=== PATIENT | female | born 2000 | race Caucasian/White ===

== ENCOUNTER 2018-04-28 06:22 | Day surgery (SDC) | payer OTHER ==
[2018-04-28] MEDS ORDERED: LIDOCAINE 2%/EPI 1:100,000 20 ML VIAL. ONE (06:42)
[2018-04-28] MEDS ORDERED: GELATIN SPONGE SIZE 100. ONE (06:42)
[2018-04-28] MEDS ORDERED: OXYMETAZOLINE 0.05% NASAL SPRAY 30ML BOTTLE. NS ONE (06:42)
[2018-04-28] MEDS ORDERED: NEOMY/BACITR/POLYMYXIN OINT PACKET. TP ONE (06:43)
[2018-04-28] MEDS ORDERED: LIDOCAINE 1%/EPI 1:100,000 20 ML VIAL. ONE (06:43)
[2018-04-28] MEDS ORDERED: MIDAZOLAM HCL/PF 2 MG/2 ML VIAL. IV PRN (06:45)
[2018-04-28] MEDS ORDERED: fentaNYL PF VIAL 100 MCG/2 ML VIAL IV PRN ×2 (06:45)
[2018-04-28] MEDS ORDERED: LIDOCAINE 1% PF 2 ML VIAL. ID PRN (06:45)
[2018-04-28] MEDS ORDERED: IV RINGERS,LACTATED 1000ML 1,000 ML IV SCH (06:45)
[2018-04-28] MEDS ORDERED: MOME17SP NS (06:49)
[2018-04-28 06:50] LABS: U PREG PATIENT NEGATIVE (NEG)
[2018-04-28] MEDS ORDERED: NORG1TAB6 PO (06:50)
[2018-04-28] MEDS ORDERED: BECL10.62 IH (06:50)
[2018-04-28] MEDS ORDERED: VENTOLIN HFA18 GM INH (06:51)
[2018-04-28] MEDS ORDERED: FEXO180T81 PO (06:52)
[2018-04-28] MEDS ORDERED: ONDANSETRON PF 4 MG/2 ML VIAL. ONE (07:09)
[2018-04-28] MEDS ORDERED: PROPOFOL 20 ML IV ONE (07:09)
[2018-04-28] MEDS ORDERED: LIDOCAINE 2% PF Vial for OR 5 ML VIAL. ONE (07:09)
[2018-04-28] MEDS ORDERED: DEXAMETHASONE SOD PHOS 20 MG/5 ML VIAL. ONE (07:09)
[2018-04-28] MEDS ORDERED: fentaNYL PF VIAL 100 MCG/2 ML VIAL ONE (07:10)
[2018-04-28] MEDS ORDERED: MIDAZOLAM HCL/PF 2 MG/2 ML VIAL. ONE (07:10)
[2018-04-28] MEDS ORDERED: ROCURONIUM 50 MG/5 ML VIAL. ONE (07:10)
--- NOTE | 2018-04-28 08:13 | PDOC4 ---
OPERATIVE NOTE: Pre op DX: adenoid hypertrophy, inferior turbinate hypertrophy Post op: same procedure; adenoidectomy only (facility did not have turbniate reduction instruments) anesthesia: gen EBL: 2ml specimens: none comp: none cond: stable to PACU ADRIANA MANRIQUEZ MD Apr 28, 2018 08:13
--- NOTE | 2018-04-28 08:14 | DISCH ---
DISCHARGE INSTRUCTIONS Condition on Discharge Condition on Discharge: Unstable Activity After Discharge Activity Instructions for Disc: Activity as tolerated Lifting Instructions after Dis: No heavy lifting Driving Instructions after Dis: Do not drive today Weight Bearing Status after Di: No restrictions Diet after Discharge Diet after Discharge: Regular Wound Incision Care Other wound/incision instructi: saline lavage: 60-120ml each nostril at least BID Contacting the DR. after DC Call your doctor for: Fever greater than 100 Treatment/Equipment after DC Adaptive Equipment Issued: None ADRIANA MANRIQUEZ MD Apr 28, 2018 08:14
[2018-04-28] MEDS ORDERED: SEVOFLURANE 16 TO 30 MINUTES. IH ONE (08:16)
[2018-04-28] MEDS ORDERED: OXYM30SP11 NS (08:18)
[2018-04-28] MEDS ORDERED: HYDROcodone/APAP 5/325MG 1 TAB TABLET PO ONE (09:30)
[2018-04-28 10:03] VITALS: BP 104/65
--- NOTE | 2018-05-05 13:21 | OP ---
DATE OF SURGERY: 04/28/2018 ATTENDING PHYSICIAN: Dr. Rosalinda Manriquez. PREOPERATIVE DIAGNOSES: Nasal obstruction, adenoid hypertrophy. PROCEDURE: Adenoidectomy. Inferior turbinate reduction was not able to be performed as [facility] did not have the proper equipment to be able to do this. INDICATION FOR PROCEDURE: This is an 18-year-old female with history of nasal obstruction refractory to medical management and history of chronic sinusitis refractory to medical management. surgery were discussed. The patient wished to proceed with surgical intervention. I contacted [facility] to bring in the nasal Coblator wand preoperatively. On the day of Surgery I was told by the operating room that this equipment was never received and unfortunately [facility] did not have alternative equipment to be able to perform the procedure. I had a long discussion with the patient and the patient's mother regarding this. Options include canceling surgery and rescheduling at a different facility versus performing adenoidectomy only and performing inferior turbinate reduction in my office at a later setting. Mom wished to proceed with adenoidectomy and inferior turbinate reduction in the office setting. DESCRIPTION OF PROCEDURE: The patient was taken to the operative suite, placed in supine position. . Once this was done, general anesthesia was administered using a laryngeal mask. The patient has history of jaw issues. I used 0-degree telescope and I placed Afrin-soaked neuro patties in each nasal passage. At this point, I was able to inspect the nasal cavity, slightly narrowed on the left side due to septal deviation and inferior turbinate hypertrophy. Using a suction cautery at a setting of 25, I was able to coagulate the adenoid pad in the nasopharynx. I was able to stay medial to the eustachian tube orifices. I then irrigated the nasopharynx with saline. I placed Afrin-soaked neuro patties and each inspected to be normal by anesthesia wakeup. The patient was then transferred to anesthesia . The patient will follow up with me in approximately 10 days of completion of the procedure to include inferior turbinate reduction. Contact me with any fever greater than 105, bleeding, other questions or concerns. ROSALINDA MANRIQUEZ MD DR: [email or web address]/joaquin JOB#: [id number] / [id number]
== END 2018-04-28 10:33 | disposition home or self-care (01) ==
LOC: SURG 06:22
PROVIDERS: ATTEND Otolaryngology
DX: J35.2 Hypertrophy of adenoids (principal); J34.89 Other specified disorders of nose and nasal sinuses; J34.2 Deviated nasal septum; J34.3 Hypertrophy of nasal turbinates; J45.909 Unspecified asthma, uncomplicated; F41.9 Anxiety disorder, unspecified; F32.9 Major depressive disorder, single episode, unspecified; Z88.1 Allergy status to other antibiotic agents; Z88.8 Allergy status to other drugs, medicaments and biological substances; Z79.2 Long term (current) use of antibiotics; Z79.899 Other long term (current) drug therapy; K08.409 Partial loss of teeth, unspecified cause, unspecified class
CPT/HCPCS: 42831; 81025; A7015; J1100; J2001; J2250; J2405; J2704; J3010; J3490